=== PATIENT | female | born 1990 | race Two or more races ===

== ENCOUNTER → 2019-08-05 | Outpatient (CLI) | payer BC ==
--- NOTE | 2019-08-05 16:40 | RAD ---
OB ultrasound less than 14 weeks to include transabdominal and transvaginal imaging 08/05/2019 CLINICAL HISTORY: First trimester . Inability to establish heart tones in doctor's office. TECHNIQUE: Using the distended urinary bladder as a sonographic window, a real-time ultrasound examination of the pelvis was performed. Additionally in an attempt to better evaluate the uterus and adnexa, a transvaginal ultrasound study was performed. Multiple images were obtained. FINDINGS: A gestational sac is seen within the endometrial canal within the body/fundus of the uterus. Within this gestational sac an embryonic pole is seen. The CRL of this embryonic pole measures 4 mm. This corresponds to an estimated gestational age by ultrasound of 6 weeks 1 day plus minus a standard deviation of 5 days. No embryonic cardiac activity is seen. This finding is consistent with embryonic demise. The uterus is otherwise within normal limits. Both ovaries are within normal limits in size. The right ovary measures 3.5 x 2.2 x 1.8 cm in size. The left ovary measures 2.9 x 1.1 x 1.6 cm in size. A 2.1 cm hemorrhagic corpus luteum is seen involving the right ovary. A small amount of free fluid is seen within the pelvis. IMPRESSION: Findings consistent with embryonic demise. Electronically signed by: Pepe Robles MD (08/05/2019 4:37 PM) [id number]
== END | disposition home or self-care (01) ==
LOC: US 14:56
PROVIDERS: ATTEND Obstetrics & Gynecology
DX: O02.81 Inappropriate change in quantitative human chorionic gonadotropin (hCG) in early pregnancy (principal); Z3A.14 14 weeks gestation of pregnancy
CPT/HCPCS: 76801; 76817